=== PATIENT | female | born 1950 | race Two or more races ===

== ENCOUNTER 2025-01-07 13:53 | Inpatient (IN) | payer MEDICARE, MEDICAID ==
[~2025-01-07] VITALS: Ht 170.2 cm; Wt 82.9 kg
--- NOTE | 2025-01-07 14:43 | ED.PDOC ---
SOB-HPI HPI Comments 74 year old female presents to the ED with a chief complaint of cough onset 2 weeks. Patient states she was seen at urgent care on 01/01/25, was diagnosed with Pneumonia, prescribed Zithromax, Prednisone. Patient was called today (01/07/25), was told to come to ED due to abnormal CXR results. Patient noticed she experiences shortness of breath, dizziness with light exertion. PMHx breast cancer. Denies nausea, vomiting, diarrhea, fever, headache, chills, chest pain. No other symptoms or modifying factors present at this time. Chief Complaint: Cough Time Seen by MD: 14:35 Primary Care Provider: unknown Reviewed notes: Nurses Notes (NKDA), Medications, Allergies Information Source: Patient Mode of Arrival: Ambulatory Severity: Moderate Timing: Weeks Duration: Since onset Context: With Light Exertion PE Risk Factors: None History of: Recent URI, Recent Antibiotic Prehospital treatment: Treatment Modifying Factors: Nothing Associated Signs and Symptoms: Cough Radiation: No Radiation Past Medical History PAST MEDICAL HISTORY: Cancer (breast) Surgical History: Appendectomy, Hysterectomy, Tonsillectomy Surgical History (Other): cataract surgery, Mastectomy 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 Family History Family History: Reviewed,noncontributory to illness, No family hx of Cancer, No family hx of DM, No family hx of Heart charity, No family hx of HTN, No family hx ofKidney charity, No family hx of Liver charity, No family hx of Lung charity, No family hx of Stroke Social History Smoker: Quit Greater Than 1 Year Alcohol: Denies ETOH Use Drugs: Denies Drug Use Lives In: Home Constitutional: denies: chills, diaphoresis, fatigue, fever, malaise, sweats, weakness, others EENTM: denies: blurred vision, double vision, ear bleeding, ear discharge, ear drainage, ear pain, ear ringing, eye pain, eye redness, hearing loss, mouth pain, mouth swelling, nasal discharge, nose bleeding, nose congestion, nose pain, photophobia, tearing, throat pain, throat swelling, voice changes, others Respiratory: reports: cough, shortness of breath; denies: hemoptysis, orthopnea, SOB at rest, SOB with excertion, stridor, wheezing, others Cardiovascular: denies: chest pain, dizzy spells, diaphoresis, Dyspnea on exertion, edema, irregular heart beat, left arm pain, lightheadedness, palpitations, PND, syncope, others Gastrointestinal: denies: abdomen distended, abdominal pain, blood streaked bowels, constipated, diarrhea, dysphagia, difficulty swallowing, hematemesis, melena, nausea, poor appetite, poor fluid intake, rectal bleeding, rectal pain, vomiting, others Genitourinary: denies: abnormal vagina bleeding, burning, dyspareunia, dysuria, flank pain, frequency, hematuria, incontinence, pain, , vagina discharge, urgency, others Neurological: reports: dizziness; denies: fainting, headache, left sided numbness, left sided weakness, numbness, paresthesia, pre-existing deficit, right sided numbness, right sided weakness, seizure, speech problems, tingling, tremors, weakness, others Musculoskeletal: denies: back pain, gout, joint pain, joint swelling, muscle pain, muscle stiffness, neck pain, others Integumetry: denies: bruises, change in color, change in hair/nails, dryness, laceration, lesions, lumps, rash, wounds, others Allergic/Immunocompromised: denies: Difficulty Healing, Frequent Infections, Hives, Itching, others Hematologic/Lymphatic: denies: anemia, blood clots, easy bleeding, easy bruising, swollen glands, others Endocrine: denies: excessive hunger, excessive sweating, excessive thirst, excessive urination, flushing, intolerance to cold, intolerance to heat, unexplained weight gain, unexplained weight loss, others Psychiatric: denies: anxiety, bipolar disorder, depression, hopeless, panic disorder, schizophrenia, sleepless, suicidal, others All Other Systems: Reviewed and Negative Physical Exam General Appearance: Moderate Distress HEENT: Normal ENT Inspection, Pharynx Normal, TMs Normal Neck: Full Range of Motion, Non-Tender, Normal, Normal Inspection Respiratory: Chest Non-Tender, Decreased Breath Sounds, No Accessory Muscle Use, Rhonchi Cardiovascular: No Edema, No JVD, No Murmur, No Gallop, Normal Peripheral Pulses, Regular Rate/Rhythm Breast Exam: Deferred Gastrointestinal: No Organomegaly, Non Tender, No Pulsatile Mass, Normal Bowel Sounds, Soft Genitalia: Deferred Pelvic: Deferred Rectal: Deferred Extremities: No calf tenderness, Normal capillary refill, Normal inspection, Normal range of motion, Non-tender, No pedal edema Musculoskeletal : Apperance: Normal Neurologic: Alert, plate sensitizer II-XII nml as Tested, Motor Weakness, Normal Affect, No rmal Mood, No Sensory Deficits Cerebellar Function: Normal Reflexes: Normal Skin: Dry, Normal Color, Warm Lymphatic: No Adenopathy Was a procedure done? Was a procedure done?: No Differential Dx Differential Diagnosis: Asthma, Bronchitis, CHF, Pneumonia X-Ray, Labs, Meds, VS Vital Signs Date Time Temp Pulse Resp B/P (MAP) Pulse Ox O2 Delivery O2 Flow Rate FiO2 01/07/25 18:31 83 01/07/25 18:03 98.1 68 17 167/76 (106) 96 98.1 01/07/25 16:06 74 01/07/25 15:22 98.0 78 16 111/60 (77) 97 98.0 01/07/25 15:03 Nasal Cannula* 2 28 01/07/25 14:13 97.8 95 18 175/74 (107) 91 97.8 01/07/25 14:13 18 90 Room Air* 0 21 Lab Test 01/07/25 18:18 01/07/25 15:06 01/07/25 14:28 Range/Units White Blood Count 14.6 H 4.4-10.8 10^3/uL Red Blood Count 4.82 4.0-5.20 10^6/uL Hemoglobin 14.3 12.2-16.2 g/dL Hematocrit 42.1 36.0-46.0 % Mean Corpuscular Volume 87.3 80.0-100.0 fL Mean Corpuscular Hemoglobin 29.8 28.0-32.0 pg Mean Corpuscular Hemoglobin Concent 34.1 32.0-36.0 g/dL Red Cell Distribution Width 13.8 11.8-14.3 % Platelet Count 306 140-450 10^3/uL Mean Platelet Volume 6.3 L 6.9-10.8 fL Neutrophils (%) (Auto) 37.0-80.0 % Lymphocytes (%) (Auto) 10.0-50.0 % Monocytes (%) (Auto) 0.0-12.0 % Basophils (%) (Auto) 0.0-2.0 % Neutrophils # (Auto) 1.6-8.6 10 ^3/uL Lymphocytes # (Auto) 0.4-5.4 10 ^3/uL Monocytes # (Auto) 0-1.3 10 ^3/uL Differential Total Cells Counted 100.0 100 Neutrophils % (Manual) 68 37.0-80.0 Band Neutrophils % (Manual) 1 Lymphocytes % (Manual) 27 10.0-50.0 Monocytes % (Manual) 3 0-12 Eosinophils % (Manual) 0 0-7 Basophils % (Manual) 0 0.0-2.0 Metamyelocytes % (manual) 0 Myelocytes % (Manual) 0 Promyelocytes % (Manual) 0 Blast Cells % (Manual) 0 Reactive Lymphocytes 1 Platelet Estimate Adequate Sodium Level 137 136-145 mmol/L Potassium Level 4.4 3.5-5.1 mmol/L Chloride Level 103 98-107 mmol/L Carbon Dioxide Level 27 20-31 mmol/L Anion Gap 7 5-15 Blood Urea Nitrogen 16 9-23 mg/dL Creatinine 0.64 0.550-1.02 mg/dL Glomerular Filtration Rate Calc 92 >90 mL/min BUN/Creatinine Ratio 25.0 H 10.0-20.0 Serum Glucose 109 H 74-106 mg/dL Lactic Acid Level 0.9 0.4-2.0 mmol/L Calcium Level 9.3 8.7-10.4 mg/dL Total Bilirubin 0.3 0.2-1.0 mg/dL Aspartate Amino Transferase (AST) 25 13-40 U/L Alanine Aminotransferase (ALT) 19 7-40 U/L Alkaline Phosphatase 80 46-116 U/L B-Type Natriuretic Peptide 234.40 0-100 pg/mL Total Protein 6.0 5.7-8.2 g/dL Albumin 3.7 3.2-4.8 g/dL Influenza Type A Antigen Negative Negative Influenza Type B Antigen Negative Negative SARS-CoV-2 Antigen (Rapid) Negative NEGATIVE Current Medications Medications (Trade) Dose Ordered Sig/Paula Route Start Time Stop Time Status Last Admin Sodium Chloride 500 ml @ 500 mls/hr Q1H ONCE IV 01/07/25 14:45 01/07/25 15:44 DC 01/07/25 15:00 PROCEDURE(s): CXRP - CHEST PORTABLE IMPRESSION: 1. Findings may represent pneumonia or congestive failure Hep-Lock was established The patient was given normal saline The patient's CBC and chemistry panel are within normal limits except for an elevated white blood cell count of 14.6 The patient was being admitted at this time. The patient was also being started on IV antibiotics. The patient understands and agrees with the treatment. Images Reviewed?: Images reviewed and evaluated by me Time of 1ST Reevaluation: 15:05 Reevaluation 1ST: Unchanged Patient Education/Counseling: Diagnosis, Treatment, Prognosis Family Education/Counseling: No Family Present Departure 1 Departure Time of Disposition: 19:54 Impression: Primary Impression: Bilateral pneumonia Qualified Codes: J18.9 - Pneumonia, unspecified organism Disposition: ADMITTED INPATIENT Admit to: Tele Condition: Fair Critical Care Note Critical Care Time?: No Stability Stability form required: Yes Unstable for transfer: Telemetry monitoring (Telemetry monitoring required), ED Physician Assesment (Clinical assesment) Heart Score Heart Score: Heart Score Response (Comments) Value History N/A 0 EKG N/A 0 Age N/A 0 Risk Factors N/A 0 Troponin N/A 0 Total 0 I personally scribed for TG JEFFRIES MD ([email or web address]) on 01/07/25 at 14:43. Electronically submitted by Caro Newton ([email or web address]). I personally scribed for TG JEFFRIES MD ([email or web address]) on 01/07/25 at 16:04. Electronically submitted by Caro Newton ([email or web address]). TG JEFFRIES MD Jan 07, 2025 14:43
[2025-01-07] MEDS: SODIUM CHLORIDE 0.9% 500 ML IV ONE (15:00)
[2025-01-07 15:18] LABS: COVID19 ANTIGEN SOFIA FIA NEGATIVE (NEGATIVE); Rapid Influenza A Negative (Negative); Rapid Influenza B Negative (Negative)
[2025-01-07 15:52] LABS: Alanine Aminotransferase 19 U/L (7-40); Albumin 3.7 g/dL (3.2-4.8); Alkaline Phosphatase 80 U/L (46-116); Anion Gap 7 (5-15); Aspartate Aminotransferase 25 U/L (13-40); Bilirubin, Total 0.3 mg/dL (0.2-1.0); Blood Urea Nitrogen 16 mg/dL (9-23); Calcium 9.3 mg/dL (8.7-10.4); Carbon Dioxide 27 mmol/L (20-31); Chloride 103 mmol/L (98-107); Potassium 4.4 mmol/L (3.5-5.1); Sodium 137 mmol/L (136-145)
[2025-01-07 15:59] LABS: Glucose 109 mg/dL (74-106)
--- NOTE | 2025-01-07 16:00 | DVH ---
CHEST RADIOGRAPH Indication: sob Technique: Single frontal view of the chest was obtained Comparison: None FINDINGS: Lines and Tubes: None Lungs: Patchy airspace disease throughout the mid lower right lung field. There appears to be patchy airspace disease in the left perihilar region. Pleura: No effusion. No pneumothorax. Cardiomediastinal contours: Cardiac size upper limits of normal. Bones: No acute osseous abnormality. IMPRESSION: 1. Findings may represent pneumonia or congestive failure
[2025-01-07 18:36] LABS: Hematocrit 42.1 % (36.0-46.0); Hemoglobin 14.3 g/dL (12.2-16.2); Mean Corpuscular Hemoglobin 29.8 pg (28.0-32.0); Mean Corpuscular Hgb Conc. 34.1 g/dL (32.0-36.0); Mean Corpuscular Volume 87.3 fL (80.0-100.0); Platelet Count (auto) 306 10^3/uL (140-450); Red Blood Cells 4.82 10^6/uL (4.0-5.20); Red Cell Distribution Width 13.8 % (11.8-14.3); White Blood Cell 14.6 10^3/uL (4.4-10.8)
--- NOTE | 2025-01-07 18:36 | DVHHP2 ---
Admitting Diagnosis: cough History of Present Illness 74 year old female presents to the ED with a chief complaint of cough onset 2 weeks. Patient states she was seen at urgent care on 01/01/25, was diagnosed with Pneumonia, prescribed Zithromax, Prednisone. Patient was called today (01/07/25), was told to come to ED due to abnormal CXR results. Patient noticed she experiences shortness of breath, dizziness with light exertion. PMHx breast cancer. Denies nausea, vomiting, diarrhea, fever, headache, chills, chest pain. No other symptoms or modifying factors present at this time. 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 Family History: Reviewed,noncontributory to illness, No family hx of Cancer, No family hx of DM, No family hx of Heart charity, No family hx of HTN, No family hx ofKidney charity, No family hx of Liver charity, No family hx of Lung charity, No family hx of Stroke Social History Smoker: Quit Greater Than 1 Year Alcohol: Denies ETOH Use Drugs: Denies Drug Use Lives In: Home Allergies: Coded Allergies: NO KNOWN ALLERGIES (Unverified , 01/07/25) Vital Signs Vital Signs Date Time Temp Pulse Resp B/P (MAP) Pulse Ox O2 Delivery O2 Flow Rate FiO2 01/07/25 18:31 83 01/07/25 18:03 98.1 17 167/76 (106) 96 98.1 01/07/25 15:03 Nasal Cannula* 2 28 Physical Exam 74 years old woman, overweight, lying in bed. Mild distress on 2 L HEENT-atraumatic normocephalic Heart-regular rate and rhythm Lungs decreased breath sounds right lower lung woo Abdomen soft nontender nondistended Musculoskeletal-no edema cyanosis Neuro-AO x3, no focal deficit Results Labs Test 01/07/25 18:18 01/07/25 15:06 01/07/25 14:28 Range/Units White Blood Count 14.6 H 4.4-10.8 10^3/uL Red Blood Count 4.82 4.0-5.20 10^6/uL Hemoglobin 14.3 12.2-16.2 g/dL Hematocrit 42.1 36.0-46.0 % Mean Corpuscular Volume 87.3 80.0-100.0 fL Mean Corpuscular Hemoglobin 29.8 28.0-32.0 pg Mean Corpuscular Hemoglobin Concent 34.1 32.0-36.0 g/dL Red Cell Distribution Width 13.8 11.8-14.3 % Platelet Count 306 140-450 10^3/uL Mean Platelet Volume 6.3 L 6.9-10.8 fL Neutrophils (%) (Auto) 37.0-80.0 % Lymphocytes (%) (Auto) 10.0-50.0 % Monocytes (%) (Auto) 0.0-12.0 % Basophils (%) (Auto) 0.0-2.0 % Neutrophils # (Auto) 1.6-8.6 10 ^3/uL Lymphocytes # (Auto) 0.4-5.4 10 ^3/uL Monocytes # (Auto) 0-1.3 10 ^3/uL Differential Total Cells Counted 100.0 100 Neutrophils % (Manual) 68 37.0-80.0 Band Neutrophils % (Manual) 1 Lymphocytes % (Manual) 27 10.0-50.0 Monocytes % (Manual) 3 0-12 Eosinophils % (Manual) 0 0-7 Basophils % (Manual) 0 0.0-2.0 Metamyelocytes % (manual) 0 Myelocytes % (Manual) 0 Promyelocytes % (Manual) 0 Blast Cells % (Manual) 0 Reactive Lymphocytes 1 Platelet Estimate Adequate Sodium Level 137 136-145 mmol/L Potassium Level 4.4 3.5-5.1 mmol/L Chloride Level 103 98-107 mmol/L Carbon Dioxide Level 27 20-31 mmol/L Anion Gap 7 5-15 Blood Urea Nitrogen 16 9-23 mg/dL Creatinine 0.64 0.550-1.02 mg/dL Glomerular Filtration Rate Calc 92 >90 mL/min BUN/Creatinine Ratio 25.0 H 10.0-20.0 Serum Glucose 109 H 74-106 mg/dL Lactic Acid Level 0.9 0.4-2.0 mmol/L Calcium Level 9.3 8.7-10.4 mg/dL Total Bilirubin 0.3 0.2-1.0 mg/dL Aspartate Amino Transferase (AST) 25 13-40 U/L Alanine Aminotransferase (ALT) 19 7-40 U/L Alkaline Phosphatase 80 46-116 U/L B-Type Natriuretic Peptide 234.40 0-100 pg/mL Total Protein 6.0 5.7-8.2 g/dL Albumin 3.7 3.2-4.8 g/dL Influenza Type A Antigen Negative Negative Influenza Type B Antigen Negative Negative SARS-CoV-2 Antigen (Rapid) Negative NEGATIVE Primary Diagnosis Right lung pneumonia Failed outpatient therapy Plan Start Zosyn for broad-spectrum antibiotics Check blood culture, sputum culture according to the ID and sensitivity Lactic acid normalized IV fluids Pain control Bowel regimen Antiemetic Full code Regular diet No GI prophylaxis needed Lovenox for DVT prophylaxis Plan discussed with: Patient Date of Service: Jan 07, 2025 Billing Provider: VANESSA MAYBERRY MD Common Visit Codes: [id number] INP/OBS CARE (MOD) VANESSA MAYBERRY MD Jan 07, 2025 18:36
[2025-01-07 18:39] LABS: Basophils % (manual) 0 (0.0-2.0); Blast Cells 0; Eosinophils % (manual) 0 (0-7); Metamyelocytes % 0; Myelocytes % 0; Promyelocytes % 0
[2025-01-07 18:50] LABS: Band Neutrophils % (manual) 1; Lymphocytes % (manual) 27 (10.0-50.0); Monocytes % (manual) 3 (0-12); Reactive Lymphocytes 1
[2025-01-07 18:51] LABS: Platelet Estimate Adequate
[2025-01-07] MEDS ORDERED: HYDROmorphone HCL 2 MG/ML VL/or syr IV PRN (19:00)
[2025-01-07] MEDS ORDERED: ACETAMINOPHEN 325 MG TAB PO PRN (19:00)
[2025-01-07] MEDS ORDERED: DOCUSATE SOD 100 MG CAP PO PRN (19:00)
[2025-01-07] MEDS ORDERED: HYDROcodone-ACET 5/325MG TAB PO PRN (19:00)
[2025-01-07 19:30] VITALS: O2SAT 95
[2025-01-07 19:52] VITALS: BP 167/76; PULSE 83; RESP 17; TEMP 98.1; O2SAT 96
[2025-01-07] MEDS: PIPERACILLIN-TAZOB 3.375GM 100 ML IV SCH (20:08)
[2025-01-07 21:18] LABS: Urine Bacteria None Seen /hpf (None Seen)
[2025-01-07 21:40] LABS: Urine Blood Negative /uL (Negative); Urine Clarity Clear (Clear); Urine Color Light-Yellow (Yellow); Urine Protein, UAD Negative (Negative); Urine Specific Gravity 1.011 (1.001-1.035); Urine Squamous Epithelial Cell None Seen /hpf (<5); Urine Urobilinogen Normal (Negative); Urine WBC 3 /HPF (0-5); Urine pH 6.5 (5.0-9.0)
[2025-01-07] MEDS: SODIUM CHLOR 0.9% PF (SALINE LOCK) 10ML VIAL/SYR IV SCH (21:41)
[2025-01-08] MEDS: PIPERACILLIN-TAZOB 3.375GM 100 ML IV SCH (02:16)
[2025-01-08 03:51] LABS: Hematocrit 40.9 % (36.0-46.0); Hemoglobin 13.6 g/dL (12.2-16.2); Mean Corpuscular Hemoglobin 28.7 pg (28.0-32.0); Mean Corpuscular Hgb Conc. 33.2 g/dL (32.0-36.0); Mean Corpuscular Volume 86.5 fL (80.0-100.0); Platelet Count (auto) 278 10^3/uL (140-450); Red Blood Cells 4.73 10^6/uL (4.0-5.20); Red Cell Distribution Width 13.8 % (11.8-14.3); White Blood Cell 13.5 10^3/uL (4.4-10.8)
[2025-01-08 04:07] LABS: Band Neutrophils % (manual) 0; Basophils % (manual) 0 (0.0-2.0); Blast Cells 0; Eosinophils % (manual) 0 (0-7); Metamyelocytes % 0; Myelocytes % 0; Promyelocytes % 0
[2025-01-08 04:08] LABS: Alanine Aminotransferase 15 U/L (7-40); Alkaline Phosphatase 76 U/L (46-116); Anion Gap 5 (5-15); Aspartate Aminotransferase 17 U/L (13-40); BUN/Creatinine Ratio 16.4 (10.0-20.0); Blood Urea Nitrogen 11 mg/dL (9-23); Carbon Dioxide 29 mmol/L (20-31); Chloride 101 mmol/L (98-107)
[2025-01-08 04:09] LABS: Albumin 3.4 g/dL (3.2-4.8); Bilirubin, Total 0.6 mg/dL (0.2-1.0)
[2025-01-08 04:14] LABS: Calcium 8.6 mg/dL (8.7-10.4); Glucose 122 mg/dL (74-106); Sodium 135 mmol/L (136-145); Total Protein 5.7 g/dL (5.7-8.2)
[2025-01-08 05:21] LABS: Lymphocytes % (manual) 14 (10.0-50.0); Monocytes % (manual) 4 (0-12); Platelet Estimate Adequate; Reactive Lymphocytes 4
[2025-01-08 07:52] VITALS: PULSE 72; RESP 16; O2SAT 95
[2025-01-08] MEDS: ENOXAPARIN SOD 40 MG/0.4 ML SYRINGE SC SCH (10:03)
[2025-01-08] MEDS: IOHEXOL 300 MG/ML 100ML BOTTLE IJ ONE (12:08)
--- NOTE | 2025-01-08 12:39 | DVHPN2 ---
Progress Note Date Seen: Jan 08, 2025 Medical Necessity Reason Pt with a Central, PICC or Fol: No Subjective Patient reports: No new complaints Review of Systems: HEENT:Normal, CVS:Normal, RESPIRATORY:Normal, GI:Normal, :Normal, MSK:Normal, NEURO:Normal Objective vital signs Vital Sign Date Time Temp Pulse Resp B/P (MAP) Pulse Ox O2 Delivery O2 Flow Rate FiO2 01/08/25 12:00 98.1 88 18 148/48 (81) 93 98.1 01/08/25 07:52 Nasal Cannula* 2 28 Total Intake and Output 01/07/25 01/07/25 01/08/25 15:00 23:00 07:00 Intake Total 500 ml Balance 500 ml medications Current Medications Medications Dose Ordered Sig/Paula Route Start Time Stop Time Status Last Admin Dose Admin Albuterol 2.5 mg Q6H PRN NEB 01/07/25 19:00 Ipratropium [place] 0.5 mg Q6H PRN NEB 01/07/25 19:00 Sodium Chloride 10 ml Q8HR IV 01/07/25 22:00 01/08/25 05:19 10 ML Docusate Sodium 100 mg BIDPRN PRN PO 01/07/25 19:00 Acetaminophen 650 mg Q6HP PRN PO 01/07/25 19:00 Acetaminophen/ Hydrocodone Bitart 1 tab Q4HP PRN PO 01/07/25 19:00 Hydromorphone HCl 0.5 mg Q4HP PRN IV 01/07/25 19:00 Ondansetron HCl 4 mg Q4HP PRN IV 01/07/25 19:00 Enoxaparin Sodium 40 mg DAILY SC 01/08/25 10:00 01/08/25 10:03 40 MG Piperacillin Sod/ Tazobactam Sod 100 ml @ 100 mls/hr Q6H IV 01/08/25 02:00 01/08/25 08:18 100 MLS/HR Examination: GENERAL:Normal, HEENT:Normal, NECK:Normal, LUNGS:Normal, LUNGS:Abnormal (on oxygen), CVS:Normal, ABDOMEN:Normal, MSK:Normal, SKIN:Normal, NEURO:Normal, :Normal laboratory and microbiology Laboratory Tests 01/08/25 03:37 Test 01/08/25 03:37 Range/Units Serum Glucose 122 H 74-106 mg/dL Problem List/Assessment/Plan Problem List/Assessment/Plan #1 acute resp failure: cont oxygen #2 right pneumonia-gram positive/neg with sepsis: iv antibiotics #3 ? acute systolic/diastolic heart failure: echo #4 h/o breast cancer #5 htn: lisinopril advance care planning- full code- time spent 19 mins Plan discussed with: Patient My Orders My Orders Orders - WINSTON PINEDA MD Procedure Category Date Status Time Chest With Contrast CT 01/08/25 Verified 12:33 Echo 2d Mode Cardiac US 01/08/25 Verified DOP 12:33 Morphine Sulfate PHA 01/08/25 Verified Injection 12:45 Basic Metabolic Panel LAB 01/09/25 Verified 06:00 Complete Blood Count LAB 01/09/25 Verified 06:00 Date of Service: Jan 08, 2025 Billing Provider: WINSTON PINEDA MD Common Visit Codes: [id number] INP/OBS CARE(HIGH) Secondary Visit Codes: [id number] CARE PLAN 30 MINUTES WINSTON PINEDA MD Jan 08, 2025 12:39
[2025-01-08] MEDS ORDERED: MORPHINE SULFATE INJ 2 MG/ml SYRG IV PRN (12:45)
[2025-01-08] MEDS ORDERED: hydrALAZINE HCL 20 MG/ML VL IV PRN (12:45)
[2025-01-08] MEDS: LISINOPRIL 5 MG TAB PO ONE (12:57)
--- NOTE | 2025-01-08 14:13 | DVH ---
CT Chest without intravenous contrast INDICATION: right pneumonia TECHNIQUE: Multidetector spiral CT of the chest was performed from the lung apices to the upper abdom en. Axial, coronal and sagittal multiplanar reformats were performed. Radiation Dose : 1. Chest: CTDI volume is 17.78 mGy. Dose-length product is 599.78 mGy*cm The dose indicators for CT are the volume Computed Tomography (CT) Dose Index (CTDIvol) and the Dose Length Product (DLP), and are measured in units of mGy and mGy-cm, respectively. These indicators are not patient dose, but values generated from the CT scanner acquisition factors. The report includes radiation exposure data for exposures received during this examination. Comparison: Chest radiograph dated 01/07/2025 Findings: Lower neck: Normal thyroid. Lungs: Bronchiectasis and scarring in the right upper lobe. Patchy airspace opacities are present in the right upper lobe and right lower lobe. Heart/Vascular Structures: Cardiomegaly. Coronary artery calcifications. Vascular calcifications of t he aorta. Lymph Nodes: No adenopathy Pleura: Trace right pleural effusion or pleural thickening. Musculoskeletal: No acute osseous abnormality. Soft tissues: Normal. Upper abdomen: Cholelithiasis. Hepatic steatosis. IMPRESSION: Patchy airspace opacities are present in the right upper lobe and right lower lobe. Findings may rep resent a combination of scarring and superimposed multifocal pneumonia. Clinical correlation advised . Radiation optimization: All CT scans at this facility use at least one of these dose optimization michael hniques: automated exposure control mA and/or kV adjustment per patient size (includes targeted exam s where dose is matched to clinical indication) or iterative reconstruction.
[2025-01-08 15:50] VITALS: O2SAT 94
[2025-01-08 18:05] VITALS: O2SAT 94
[2025-01-08 18:32] VITALS: BP 134/59; PULSE 72; RESP 18; TEMP 98.1; O2SAT 95
[2025-01-08] MEDS ORDERED: METH4TAB44 PO (20:24)
[2025-01-08] MEDS ORDERED: ALBU0.084 NEB (20:24)
[2025-01-08] MEDS ORDERED: LORA-622 PO (20:24)
[2025-01-08] MEDS ORDERED: PRED20TA2 PO (20:24)
[2025-01-08] MEDS ORDERED: AZIT-74 PO (20:24)
[2025-01-08 21:00] VITALS: BP 137/53; PULSE 89; RESP 16; TEMP 98.6; O2SAT 95
[2025-01-09] VITALS (12 sets, daily range): BP systolic 115–149; BP diastolic 43–64; PULSE 63–116; RESP 16–18; TEMP 98–98.6; O2SAT 93–100
[2025-01-09 05:43] LABS: Basophils # (auto) 0 10 ^3/uL (0-0.2); Basophils % (auto) 0.3 % (0.0-2.0); Eosinophils # (auto) 0.3 10 ^3/uL (0-0.8); Eosinophils % (auto) 2.2 % (0.0-7.0); Hematocrit 40.7 % (36.0-46.0); Hemoglobin 13.6 g/dL (12.2-16.2); Lymphocytes % (auto) 15.5 % (10.0-50.0); Mean Corpuscular Hemoglobin 28.9 pg (28.0-32.0); Mean Corpuscular Hgb Conc. 33.4 g/dL (32.0-36.0); Mean Corpuscular Volume 86.7 fL (80.0-100.0); Monocytes # (auto) 0.7 10 ^3/uL (0-1.3); Neutrophils # (auto) 10.1 10 ^3/uL (1.6-8.6); Platelet Count (auto) 282 10^3/uL (140-450); Red Cell Distribution Width 13.7 % (11.8-14.3); White Blood Cell 13.1 10^3/uL (4.4-10.8)
[2025-01-09] MEDS: ONDANSETRON HCL 4 MG/2 ML VIAL IV PRN (05:50)
[2025-01-09 06:02] LABS: Alanine Aminotransferase 15 U/L (7-40); Albumin 3.5 g/dL (3.2-4.8); Alkaline Phosphatase 77 U/L (46-116); Anion Gap 5 (5-15); Aspartate Aminotransferase 14 U/L (13-40); BUN/Creatinine Ratio 10.4 (10.0-20.0); Blood Urea Nitrogen 7 mg/dL (9-23); Calcium 9.2 mg/dL (8.7-10.4); Carbon Dioxide 29 mmol/L (20-31); Chloride 101 mmol/L (98-107); Glucose 123 mg/dL (74-106); Potassium 3.9 mmol/L (3.5-5.1); Sodium 135 mmol/L (136-145); Total Protein 5.8 g/dL (5.7-8.2)
[2025-01-09 06:03] LABS: Bilirubin, Total 0.6 mg/dL (0.2-1.0)
[2025-01-09] MEDS: LISINOPRIL 5 MG TAB PO SCH (08:57)
--- NOTE | 2025-01-09 12:27 | DVHPN2 ---
Progress Note Date Seen: Jan 09, 2025 Medical Necessity Reason Pt with a Central, PICC or Fol: No Subjective Patient reports: No new complaints Review of Systems: HEENT:Normal, CVS:Normal, RESPIRATORY:Normal, GI:Normal, :Normal, MSK:Normal, NEURO:Normal Objective vital signs Vital Sign Date Time Temp Pulse Resp B/P (MAP) Pulse Ox O2 Delivery O2 Flow Rate FiO2 01/09/25 08:57 139/52 01/09/25 08:54 98 Nasal Cannula 2.0 01/09/25 08:54 28 01/09/25 08:42 98.4 80 17 98.4 Total Intake and Output 01/08/25 01/08/25 01/09/25 15:00 23:00 07:00 Intake Total 100 ml 100 ml 300 ml Balance 100 ml 100 ml 300 ml medications Current Medications Medications Dose Ordered Sig/Paula Route Start Time Stop Time Status Last Admin Dose Admin Albuterol 2.5 mg Q6H PRN NEB 01/07/25 19:00 Ipratropium [place] 0.5 mg Q6H PRN NEB 01/07/25 19:00 Sodium Chloride 10 ml Q8HR IV 01/07/25 22:00 01/09/25 05:48 10 ML Docusate Sodium 100 mg BIDPRN PRN PO 01/07/25 19:00 Acetaminophen 650 mg Q6HP PRN PO 01/07/25 19:00 Acetaminophen/ Hydrocodone Bitart 1 tab Q4HP PRN PO 01/07/25 19:00 Ondansetron HCl 4 mg Q4HP PRN IV 01/07/25 19:00 01/09/25 05:50 4 MG Enoxaparin Sodium 40 mg DAILY SC 01/08/25 10:00 01/09/25 08:53 40 MG Piperacillin Sod/ Tazobactam Sod 100 ml @ 100 mls/hr Q6H IV 01/08/25 02:00 01/09/25 08:53 100 MLS/HR Morphine Sulfate 2 mg Q4HPRN PRN IV 01/08/25 12:45 Lisinopril 10 mg DAILY PO 01/09/25 10:00 01/09/25 08:57 10 MG Hydralazine HCl 10 mg Q6HP PRN IV 01/08/25 12:45 Examination: GENERAL:Normal, HEENT:Normal, NECK:Normal, LUNGS:Normal, LUNGS:Abnormal (on oxygen), CVS:Normal, ABDOMEN:Normal, MSK:Normal, SKIN:Normal, NEURO:Normal, :Normal laboratory and microbiology Laboratory Tests 01/09/25 04:58 Test 01/09/25 04:58 Range/Units Serum Glucose 123 H 74-106 mg/dL Microbiology Date/Time Source Procedure Growth Status 01/07/25 19:25 Blood Blood Culture - Preliminary NO GROWTH AFTER 24 HOURS OF INCUBATION. Resulted Problem List/Assessment/Plan Problem List/Assessment/Plan #1 acute resp failure: cont oxygen #2 right pneumonia-gram positive/neg/mrsa? with sepsis: iv antibiotics, iv vanc #3 ? acute systolic/diastolic heart failure: echo #4 h/o breast cancer #5 htn: lisinopril advance care planning- full code- time spent 19 mins Plan discussed with: Patient My Orders My Orders Orders - WINSTON PINEDA MD Procedure Category Date Status Time Chest With Contrast CT 01/08/25 Resulted 12:33 Morphine Sulfate PHA 01/08/25 In Process Injection 12:45 Hydralazine Injection PHA 01/08/25 In Process (Apresoline Inject 12:45 Lisinopril Tablet PHA 01/09/25 In Process (Zestril Tablet) 10:00 2 Gm Sodium Diet DIET 01/08/25 Transmitted Lunch Vancomycin Per PHA 01/09/25 Verified Pharmacy 12:30 Complete Blood Count LAB 01/10/25 Verified 06:00 Date of Service: Jan 09, 2025 Billing Provider: WINSTON PINEDA MD Common Visit Codes: [id number] INP/OBS CARE(HIGH) WINSTON PINEDA MD Jan 09, 2025 12:27
[2025-01-09] MEDS ORDERED: VANCOMYCIN PER PHARMACY 0 MG IV SCH (12:30)
[2025-01-09] MEDS: ALBUTEROL SULF 2.5 MG/0.5ML(0.5%) NEB SOLN NEB PRN (14:50)
[2025-01-09] MEDS: IPRATROPIUM BROM 0.5 MG/2.5ML INH SOL NEB PRN (14:50)
[2025-01-09] MEDS: VANCOMYCIN 1.5GM/300ML 300 ML IV ONE (15:50)
[2025-01-10] VITALS (14 sets, daily range): BP systolic 115–136; BP diastolic 51–66; PULSE 69–113; RESP 16–18; TEMP 97.6–98.9; O2SAT 89–100
[2025-01-10] MEDS: VANCOMYCIN 1GM/250ML KIT 250 ML IV SCH (04:22)
[2025-01-10] MEDS: PIPERACILLIN-TAZOB 3.375GM 100 ML IV SCH (06:01)
[2025-01-10 08:02] LABS: Basophils # (auto) 0.1 10 ^3/uL (0-0.2); Basophils % (auto) 0.5 % (0.0-2.0); Eosinophils # (auto) 0.4 10 ^3/uL (0-0.8); Eosinophils % (auto) 2.5 % (0.0-7.0); Hematocrit 39.7 % (36.0-46.0); Hemoglobin 13.3 g/dL (12.2-16.2); Lymphocytes # (auto) 1.8 10 ^3/uL (0.4-5.4); Lymphocytes % (auto) 12.4 % (10.0-50.0); Mean Corpuscular Hemoglobin 29.4 pg (28.0-32.0); Mean Corpuscular Hgb Conc. 33.5 g/dL (32.0-36.0); Mean Corpuscular Volume 87.7 fL (80.0-100.0); Monocytes # (auto) 0.6 10 ^3/uL (0-1.3); Neutrophils # (auto) 11.9 10 ^3/uL (1.6-8.6); Neutrophils % (auto) 80.6 % (37.0-80.0); Nucleated Red Blood Cells % 0.1 %; Platelet Count (auto) 276 10^3/uL (140-450); Red Blood Cells 4.53 10^6/uL (4.0-5.20); Red Cell Distribution Width 13.8 % (11.8-14.3); White Blood Cell 14.8 10^3/uL (4.4-10.8)
[2025-01-10 08:24] LABS: Alanine Aminotransferase 16 U/L (7-40); Albumin 3.4 g/dL (3.2-4.8); Alkaline Phosphatase 68 U/L (46-116); Anion Gap 7 (5-15); Aspartate Aminotransferase 14 U/L (13-40); BUN/Creatinine Ratio 10.6 (10.0-20.0); Bilirubin, Total 0.6 mg/dL (0.2-1.0); Carbon Dioxide 27 mmol/L (20-31); Chloride 103 mmol/L (98-107); Sodium 137 mmol/L (136-145); Total Protein 5.8 g/dL (5.7-8.2)
[2025-01-10 08:32] LABS: Blood Urea Nitrogen 7 mg/dL (9-23); Glucose 115 mg/dL (74-106)
--- NOTE | 2025-01-10 15:43 | DVHPN2 ---
Progress Note Date Seen: Jan 10, 2025 Medical Necessity Reason Pt with a Central, PICC or Fol: No Subjective Patient reports: No new complaints Review of Systems: HEENT:Normal, CVS:Normal, RESPIRATORY:Normal, GI:Normal, :Normal, MSK:Normal, NEURO:Normal Objective vital signs Vital Sign Date Time Temp Pulse Resp B/P (MAP) Pulse Ox O2 Delivery O2 Flow Rate FiO2 01/10/25 13:00 97.6 77 18 115/64 (81) 93 97.6 01/10/25 10:22 2.0 01/10/25 08:20 Nasal Cannula* 28 Total Intake and Output 01/09/25 01/09/25 01/10/25 15:00 23:00 07:00 Intake Total 100 ml 760 ml 400 ml Balance 100 ml 760 ml 400 ml medications Current Medications Medications Dose Ordered Sig/Paula Route Start Time Stop Time Status Last Admin Dose Admin Albuterol 2.5 mg Q6H PRN NEB 01/07/25 19:00 01/10/25 07:27 2.5 MG Ipratropium [place] 0.5 mg Q6H PRN NEB 01/07/25 19:00 01/10/25 07:27 0.5 MG Sodium Chloride 10 ml Q8HR IV 01/07/25 22:00 01/10/25 14:09 10 ML Docusate Sodium 100 mg BIDPRN PRN PO 01/07/25 19:00 Acetaminophen 650 mg Q6HP PRN PO 01/07/25 19:00 Acetaminophen/ Hydrocodone Bitart 1 tab Q4HP PRN PO 01/07/25 19:00 Ondansetron HCl 4 mg Q4HP PRN IV 01/07/25 19:00 01/09/25 05:50 4 MG Enoxaparin Sodium 40 mg DAILY SC 01/08/25 10:00 01/10/25 10:26 40 MG Morphine Sulfate 2 mg Q4HPRN PRN IV 01/08/25 12:45 Lisinopril 10 mg DAILY PO 01/09/25 10:00 01/10/25 10:26 10 MG Hydralazine HCl 10 mg Q6HP PRN IV 01/08/25 12:45 Vancomycin HCl 0 ml @ 0 mls/hr UD IV 01/09/25 12:30 Vancomycin HCl 250 ml @ 250 mls/hr Q12H IV 01/10/25 04:00 01/10/25 04:22 250 MLS/HR Piperacillin Sod/ Tazobactam Sod 100 ml @ 100 mls/hr Q6H IV 01/10/25 06:00 01/10/25 12:26 100 MLS/HR Examination: GENERAL:Normal, HEENT:Normal, NECK:Normal, LUNGS:Normal, LUNGS:Abnormal (on oxygen), CVS:Normal, ABDOMEN:Normal, MSK:Normal, SKIN:Normal, NEURO:Normal, :Normal laboratory and microbiology Laboratory Tests 01/10/25 07:16 Test 01/10/25 07:16 Range/Units Serum Glucose 115 H 74-106 mg/dL Microbiology Date/Time Source Procedure Growth Status 01/07/25 19:25 Blood Blood Culture - Preliminary NO GROWTH AFTER 48 HOURS OF INCUBATION. Resulted Problem List/Assessment/Plan Problem List/Assessment/Plan #1 acute resp failure: cont oxygen #2 right pneumonia-gram positive/neg/mrsa? with sepsis: iv antibiotics, iv vanc #3 ? acute systolic/diastolic heart failure: echo #4 h/o breast cancer #5 htn: lisinopril advance care planning- full code- time spent 19 mins Plan discussed with: Patient My Orders My Orders Orders - WINSTON PINEDA MD Procedure Category Date Status Time Vancomycin Per DEEPAK 01/11/25 In Process Pharmacy Protoc 04:00 Vancomycin,Trough LAB 01/11/25 Verified 03:00 Vancomycin 1gm/250ml PHA 01/10/25 In Process Kit 04:00 Dietary Evaluation Review Comments: encourage and monitor 75% PO intake. Expected Outcomes/Goals: gradual wt loss, within 10% of IBW Date of Service: Jan 10, 2025 Billing Provider: WINSTON PINEDA MD Common Visit Codes: [id number] INP/OBS CARE(HIGH) WINSTON PINEDA MD Jan 10, 2025 15:43
[2025-01-11] VITALS (11 sets, daily range): BP systolic 116–146; BP diastolic 57–70; PULSE 80–100; RESP 17–18; TEMP 97.3–98.3; O2SAT 92–97
[2025-01-11 03:55] LABS: Basophils # (auto) 0 10 ^3/uL (0-0.2); Basophils % (auto) 0.3 % (0.0-2.0); Eosinophils # (auto) 0.3 10 ^3/uL (0-0.8); Eosinophils % (auto) 2.9 % (0.0-7.0); Hematocrit 36.8 % (36.0-46.0); Hemoglobin 12.5 g/dL (12.2-16.2); Lymphocytes # (auto) 2.1 10 ^3/uL (0.4-5.4); Mean Corpuscular Hemoglobin 29.7 pg (28.0-32.0); Mean Corpuscular Hgb Conc. 33.9 g/dL (32.0-36.0); Mean Corpuscular Volume 87.6 fL (80.0-100.0); Monocytes # (auto) 0.6 10 ^3/uL (0-1.3); Monocytes % (auto) 5.5 % (0.0-12.0); Neutrophils # (auto) 7.6 10 ^3/uL (1.6-8.6); Neutrophils % (auto) 71.3 % (37.0-80.0); Nucleated Red Blood Cells % 0.1 %; Platelet Count (auto) 266 10^3/uL (140-450); White Blood Cell 10.6 10^3/uL (4.4-10.8)
[2025-01-11 04:12] LABS: Alanine Aminotransferase 14 U/L (7-40); Alkaline Phosphatase 57 U/L (46-116); Anion Gap 8 (5-15); BUN/Creatinine Ratio 16.4 (10.0-20.0); Blood Urea Nitrogen 11 mg/dL (9-23); Calcium 9.3 mg/dL (8.7-10.4); Carbon Dioxide 26 mmol/L (20-31); Chloride 103 mmol/L (98-107); Potassium 3.7 mmol/L (3.5-5.1); Sodium 137 mmol/L (136-145); Total Protein 5.7 g/dL (5.7-8.2)
[2025-01-11 04:13] LABS: Albumin 3.4 g/dL (3.2-4.8); Aspartate Aminotransferase 14 U/L (13-40); Bilirubin, Total 0.5 mg/dL (0.2-1.0); Glucose 113 mg/dL (74-106)
--- NOTE | 2025-01-11 07:04 | DVH ---
EXAM: XR Chest, 1 View CLINICAL INDICATION: right pneumonia TECHNIQUE: Frontal view of the chest. COMPARISON: XY CHEST PORTABLE on DOS: 01/07/25 FINDINGS: LUNGS AND PLEURAL SPACES: See below. HEART: Cardiomegaly with pulmonary congestion and edema. Superimposed pneumonia cannot be excluded. MEDIASTINUM: Unremarkable. Normal mediastinal contour. BONES/JOINTS: Unremarkable. No acute fracture. OTHER FINDINGS: . IMPRESSION: Cardiomegaly with pulmonary congestion and edema. Superimposed pneumonia cannot be excluded.
[2025-01-11] MEDS: FLORASTOR (S. BOULARDII) 250 MG CAP PO SCH (10:21)
--- NOTE | 2025-01-11 14:15 | DVHSR ---
APPROVED REPORT EXAM: LIMITED Two-dimensional and M-mode echocardiogram with Doppler and color Doppler. Blood Pressure: 148/48 mmHg INDICATION CHF RISK FACTORS Height: 67, Weight: 184 DIMENSIONS LVDd4.7 (3.8-5.7cm)LA (2D) (1.9-4.0cm)Aortic Root (2.0-3.7cm) LVDs3.5 (2.5-4.0cm)LA (MM) (1.9-4.0cm)Aortic Cusp Exc (1.5-2.0cm) EF (%) 50.0 (55-70%)Rt. Atrium (1.9-4.0cm)Asc. Aorta cm Mitral Valve MitralMitral Stenosis E wave1.02m/sMV Mean GR.mmHg A wave1.06m/sMV Peak GR.mmHg E/A ratio1.02D MVAcm2 DECEL [id number] 1/2 Timems Aortic Valve Aortic ValveAortic Stenosis V10.74m/Gagan Mean GR.3mmHg V21.17m/Gagan Peak GR.6mmHg Other Information Technically limited study due to body habitus, patient position, patient sensitive to touch. Limited views. Conclusion Technically difficult study. Difficult acoustic windows. Chamber dimensions appear to be within normal limits. Difficult to fully evaluate endocardial struct ures. Valves appear to be normal from the limited views obtained. EF of 60% with normal RV function. Dopplers unremarkable. No pericardial effusion masses or vegetations discernible.
--- NOTE | 2025-01-11 16:44 | DVHPN2 ---
Progress Note Date Seen: Jan 11, 2025 Medical Necessity Reason Pt with a Central, PICC or Fol: No Subjective Patient reports: No new complaints Review of Systems: HEENT:Normal, CVS:Normal, RESPIRATORY:Normal, GI:Normal, :Normal, MSK:Normal, NEURO:Normal Objective vital signs Vital Sign Date Time Temp Pulse Resp B/P (MAP) Pulse Ox O2 Delivery O2 Flow Rate FiO2 01/11/25 12:30 98.3 92 17 136/60 (85) 94 98.3 01/11/25 08:08 Nasal Cannula* 2 28 Total Intake and Output 01/10/25 01/10/25 01/11/25 15:00 23:00 07:00 Intake Total 200 ml 1559 ml 560 ml Balance 200 ml 1559 ml 560 ml medications Current Medications Medications Dose Ordered Sig/Paula Route Start Time Stop Time Status Last Admin Dose Admin Albuterol 2.5 mg Q6H PRN NEB 01/07/25 19:00 01/10/25 23:42 2.5 MG Ipratropium [place] 0.5 mg Q6H PRN NEB 01/07/25 19:00 01/10/25 23:42 0.5 MG Sodium Chloride 10 ml Q8HR IV 01/07/25 22:00 01/11/25 14:40 10 ML Docusate Sodium 100 mg BIDPRN PRN PO 01/07/25 19:00 Acetaminophen 650 mg Q6HP PRN PO 01/07/25 19:00 Acetaminophen/ Hydrocodone Bitart 1 tab Q4HP PRN PO 01/07/25 19:00 Ondansetron HCl 4 mg Q4HP PRN IV 01/07/25 19:00 01/09/25 05:50 4 MG Enoxaparin Sodium 40 mg DAILY SC 01/08/25 10:00 01/11/25 10:22 40 MG Morphine Sulfate 2 mg Q4HPRN PRN IV 01/08/25 12:45 Lisinopril 10 mg DAILY PO 01/09/25 10:00 01/11/25 10:22 10 MG Hydralazine HCl 10 mg Q6HP PRN IV 01/08/25 12:45 Vancomycin HCl 0 ml @ 0 mls/hr UD IV 01/09/25 12:30 Vancomycin HCl 250 ml @ 250 mls/hr Q12H IV 01/10/25 04:00 01/11/25 16:13 250 MLS/HR Piperacillin Sod/ Tazobactam Sod 100 ml @ 100 mls/hr Q6H IV 01/10/25 06:00 01/11/25 14:39 100 MLS/HR Saccharomyces Boulardii 250 mg DAILY PO 01/11/25 10:00 01/11/25 10:21 250 MG Examination: GENERAL:Normal, HEENT:Normal, NECK:Normal, LUNGS:Normal, LUNGS:Abnormal (on oxygen), CVS:Normal, ABDOMEN:Normal, MSK:Normal, SKIN:Normal, NEURO:Normal, :Normal laboratory and microbiology Laboratory Tests 01/11/25 03:00 Test 01/11/25 03:00 Range/Units Serum Glucose 113 H 74-106 mg/dL Microbiology Date/Time Source Procedure Growth Status 01/07/25 19:25 Blood Blood Culture - Preliminary NO GROWTH AFTER 72 HOURS OF INCUBATION. Resulted Problem List/Assessment/Plan Problem List/Assessment/Plan #1 acute resp failure: cont oxygen #2 right pneumonia-gram positive/neg/mrsa? with sepsis:doxy #3 ? acute systolic/diastolic heart failure: lasix iv #4 h/o breast cancer #5 htn: lisinopril advance care planning- full code- time spent 19 mins Plan discussed with: Patient My Orders My Orders Orders - WINSTON PINEDA MD Procedure Category Date Status Time Vancomycin Per DEEPAK 01/12/25 In Process Pharmacy Protoc 15:00 Vancomycin,Trough LAB 01/12/25 Verified 15:00 Furosemide Injection PHA 01/11/25 Verified (Lasix Injection) 16:45 Furosemide Injection PHA 01/12/25 Verified (Lasix Injection) 10:00 Doxycycline Tablet PHA 01/11/25 Verified (Vibramycin Tablet) 22:00 Basic Metabolic Panel LAB 01/12/25 Verified 06:00 Complete Blood Count LAB 01/12/25 Verified 06:00 Chest Portable XY 01/12/25 Verified 06:00 Dietary Evaluation Review Comments: encourage and monitor 75% PO intake. Expected Outcomes/Goals: gradual wt loss, within 10% of IBW Date of Service: Jan 11, 2025 Billing Provider: WINSTON PINEDA MD Common Visit Codes: [id number] INP/OBS CARE(HIGH) WINSTON PINEDA MD Jan 11, 2025 16:44
[2025-01-11] MEDS: FUROSEMIDE 20 MG/2 ML VIAL IV ONE (18:21)
[2025-01-11] MEDS: DOXYCYCLINE 100 MG TAB/CAP PO SCH (21:28)
[2025-01-12] VITALS (12 sets, daily range): BP systolic 126–170; BP diastolic 55–81; PULSE 77–104; RESP 16–20; TEMP 97.4–98.3; O2SAT 93–99
[2025-01-12 05:14] LABS: Basophils # (auto) 0 10 ^3/uL (0-0.2); Basophils % (auto) 0.5 % (0.0-2.0); Eosinophils # (auto) 0.3 10 ^3/uL (0-0.8); Eosinophils % (auto) 4.1 % (0.0-7.0); Hematocrit 39.2 % (36.0-46.0); Hemoglobin 13.5 g/dL (12.2-16.2); Lymphocytes # (auto) 1.9 10 ^3/uL (0.4-5.4); Lymphocytes % (auto) 23.4 % (10.0-50.0); Mean Corpuscular Hgb Conc. 34.4 g/dL (32.0-36.0); Mean Corpuscular Volume 87.1 fL (80.0-100.0); Monocytes # (auto) 0.6 10 ^3/uL (0-1.3); Monocytes % (auto) 7.5 % (0.0-12.0); Neutrophils # (auto) 5.3 10 ^3/uL (1.6-8.6); Neutrophils % (auto) 64.5 % (37.0-80.0); Platelet Count (auto) 275 10^3/uL (140-450); Red Cell Distribution Width 13.6 % (11.8-14.3); White Blood Cell 8.3 10^3/uL (4.4-10.8)
[2025-01-12 05:36] LABS: Alanine Aminotransferase 13 U/L (7-40); Albumin 3.8 g/dL (3.2-4.8); Alkaline Phosphatase 62 U/L (46-116); Anion Gap 7 (5-15); Aspartate Aminotransferase 17 U/L (13-40); BUN/Creatinine Ratio 10.3 (10.0-20.0); Calcium 9.5 mg/dL (8.7-10.4); Carbon Dioxide 28 mmol/L (20-31); Chloride 101 mmol/L (98-107); Potassium 3.8 mmol/L (3.5-5.1); Total Protein 6.3 g/dL (5.7-8.2)
[2025-01-12 05:37] LABS: Bilirubin, Total 0.4 mg/dL (0.2-1.0)
[2025-01-12 05:39] LABS: Blood Urea Nitrogen 7 mg/dL (9-23); Glucose 120 mg/dL (74-106); Sodium 136 mmol/L (136-145)
[2025-01-12] MEDS: FUROSEMIDE 20 MG/2 ML VIAL IV SCH (09:16)
--- NOTE | 2025-01-12 09:58 | DVH ---
CHEST RADIOGRAPH Indication: chf Technique: Single frontal view of the chest was obtained COMPARISON: XY CHEST PORTABLE on DOS: 01/11/25, XY CHEST PORTABLE on DOS: 01/07/25 FINDINGS: Lines and Tubes: None Lungs: Unchanged airspace opacities in the right lung. Improved aeration of the left lung. Pleura: No effusion. No pneumothorax. Cardiomediastinal contours: Unremarkable Bones: Unremarkable IMPRESSION: Unchanged airspace opacities in the right lung. Improved aeration of the left lung.
--- NOTE | 2025-01-12 16:15 | DVHPN2 ---
Subjective Patient was starts that her breathing has improved. Reviewed: Care Plan, H&P, Labs, Medications Changes from previous H/P or p: No Changes Objective Vitals Vital Signs Date Time Temp Pulse Resp B/P (MAP) Pulse Ox O2 Delivery O2 Flow Rate FiO2 01/12/25 09:16 134/80 01/12/25 09:00 97.4 97 20 93 97.4 01/12/25 08:08 Nasal Cannula* 2 28 Intake/Output Intake and Output 01/12/25 07:00 Intake Total 1409 ml Output Total 1 ml Balance 1408 ml Intake Oral 1309 ml IV Total 100 ml Output Urine Total 1 ml # Voids 5 # Bowel Movements 4 General Appearance: Alert, Oriented X3, Cooperative, No acute distress HEENT: Atraumatic, PERRLA Lungs: Other (Rhonchi in right upper and lower lobe) Cardiovascular: Normal S1, Normal S2 Musculoskeletal: Normal sensory function, Normal motor function Neuro: Normal gait, Normal speech Psych/Mental Status: Mental status NL, Mood NL Medications Current Medications Medications Dose Ordered Sig/Paula Route Start Time Stop Time Status Last Admin Dose Admin Albuterol 2.5 mg Q6H PRN NEB 01/07/25 19:00 01/10/25 23:42 2.5 MG Ipratropium [place] 0.5 mg Q6H PRN NEB 01/07/25 19:00 01/10/25 23:42 0.5 MG Sodium Chloride 10 ml Q8HR IV 01/07/25 22:00 01/12/25 15:12 10 ML Docusate Sodium 100 mg BIDPRN PRN PO 01/07/25 19:00 Acetaminophen 650 mg Q6HP PRN PO 01/07/25 19:00 Acetaminophen/ Hydrocodone Bitart 1 tab Q4HP PRN PO 01/07/25 19:00 Ondansetron HCl 4 mg Q4HP PRN IV 01/07/25 19:00 01/09/25 05:50 4 MG Morphine Sulfate 2 mg Q4HPRN PRN IV 01/08/25 12:45 Lisinopril 10 mg DAILY PO 01/09/25 10:00 01/12/25 09:16 10 MG Hydralazine HCl 10 mg Q6HP PRN IV 01/08/25 12:45 Saccharomyces Boulardii 250 mg DAILY PO 01/11/25 10:00 01/12/25 09:16 250 MG Furosemide 20 mg DAILY IV 01/12/25 10:00 01/12/25 09:16 20 MG Doxycycline Monohydrate 100 mg Q12HR PO 01/11/25 22:00 01/12/25 09:16 100 MG Laboratory Results Laboratory Tests 01/12/25 04:42 Chemistry Test 01/12/25 04:42 Albumin 3.8 g/dL (3.2-4.8) Calcium Level 9.5 mg/dL (8.7-10.4) Total Protein 6.3 g/dL (5.7-8.2) LFT Test 01/12/25 04:42 Alanine Aminotransferase (ALT) 13 U/L (7-40) Alkaline Phosphatase 62 U/L (46-116) Aspartate Amino Transferase (AST) 17 U/L (13-40) Total Bilirubin 0.4 mg/dL (0.2-1.0) Urinalysis Test 01/07/25 21:00 Urine Color Light-yellow (Yellow) Urine Clarity Clear (Clear) Urine pH 6.5 (5.0-9.0) Urine Specific [place] 1.011 (1.001-1.035) Urine Protein Negative (Negative) Urine Ketones Negative (Negative) Urine Blood Negative /uL (Negative) Urine Nitrite Negative (Negative) Urine Bilirubin Negative (Negative) Urine Urobilinogen Normal mg/dL (Negative) Urine Leukocyte Esterase Negative /uL (Negative) Urine RBC <1 /hpf (0 - 4) Urine Microscopic WBC 3 /HPF (0-5) Urine Squamous Epithelial Cells None seen /hpf (<5) Urine Bacteria None seen /hpf (None Seen) Urine Glucose Normal mg/dL (Normal) Microbiology Microbiology Date/Time Source Procedure Growth Status 01/07/25 19:25 Blood Blood Culture - Preliminary NO GROWTH AFTER 72 HOURS OF INCUBATION. Resulted Labs and/or images reviewed: Labs reviewed by me, Image(s) reviewed by me Assessment/Plan Assessment/Plan Impression: -acute hypoxic respiratory failure -sepsis secondary to multifocal pneumonia -community-acquired pneumonia, probable Gram-positive/Gram-negative etiology with failure of oral antibiotic therapy -history of breast cancer -COPD -asthma Plan: -patient's overall clinical status has improved. Discussion made with the patient regarding her long history as well as her health maintenance outside of the hospital. She states that her PCP is Dr. Estevez, for who she does not follow up with on a regular basis. She states that she has a history of COPD and asthma and has had home O2 in the past. Patient was states that she does not have a psychological stress evaluator. -continue current antibiotic therapy -bronchodilators -room air ABG with social service consultation for home O2 -pulmonology consultation for follow up management as an outpatient -discharge planning for tomorrow a.m. Total time spent with patient discussing and formulating plan of care: 35 minutes. This medical document was created using an electronic medical record system with [email or web address] dictation system. Although this document has been carefully reviewed, there may still be some phonetic and typographical errors. These areas are purely typographical due to imperfections of the software programs, and do not reflect any compromise in the patient's medical care. Plan discussed with: Patient, Other (RN) My Orders Orders - ASHISH CROSS NP Procedure Category Date Status Time Abg W/ Co-Ox RT 01/12/25 Logged 16:05 Ss Eval For Home CONS 01/12/25 Transmitted Oxygen Date of Service: Jan 12, 2025 Billing Provider: ASHISH CROSS NP Common Visit Codes: [id number] INP/OBS CARE(HIGH) Procedure Codes: [id number] ASHISH CROSS NP Jan 12, 2025 16:15
[2025-01-12 17:10] LABS: Base Excess 4.3 mmol/L (-2.0-3.0)
--- NOTE | 2025-01-12 21:43 | DVHINCON2 ---
Date of service: Jan 12, 2025 Referring Physician Escobar Hoff NP Reason for Consultation Acute hypoxic respiratory failure, multifocal pneumonia and COPD exacerbation. History of Present Illness A 74-year-old woman with past medical history of breast cancer who presented to ED on 01/07/25 with complaint of cough onset x2 weeks. Patient was seen at urgent care on 01/01/25, diagnosed with pneumonia, prescribed Zithromax and prednisone. She was called on day of presentation and told to go to ED due to abnormal CXR results. Patient c/o shortness of breath, dizziness with light exertion. Denied headache, fever, chills, chest pain, N/V/D. Patient was admitted for further ca re and pulmonary consultation is requested for evaluation and management of acute hypoxic respiratory failure, multifocal pneumonia and COPD exacerbation. Review of Systems: 14-point review of systems negative unless otherwise noted above. Past Medical History: Breast cancer. Past Surgical History: Mastectomy, Appendectomy, Hysterectomy, Tonsillectomy, Cataract Surgery Medications: Reviewed. Allergies: No known drug allergies. Family History: No family history of premature CAD. No family history of lung disorders. Social History: Former smoker: Quit Greater Than 1 Year Alcohol: Denies ETOH Use Drugs: Denies Drug Use Family History: Patient reports no known family medical history. Allergies: Coded Allergies: Paroxetine (Verified Allergy, Intermediate, 01/08/25) Alprazolam (Verified Adverse Reaction, Intermediate, 01/08/25) Home Meds Active Scripts Methylprednisolone (Medrol Dosepak) 4 Mg Christian, 4 MG PO UD, #21 TAB UAD Prov:TERESA FIGUEROA MD 01/13/25 Doxycycline (Monohydrate) (Doxycycline) 100 Mg Cap, 100 MG PO BID, #14 CAP Prov:TERESA FIGUEROA MD 01/13/25 Reported Medications Prednisone (Prednisone) 20 Mg Tab, 20 MG PO, MG 01/08/25 Methylprednisolone (Methylprednisolone) 4 Mg Tab, 4 MG PO, TAB 01/08/25 Loratadine (Claritin) 10 Mg Tab, 1 TAB PO DAILY, #30 TAB 5 Refills 01/08/25 Azithromycin (Zithromax) 250 Mg Tab, 250 MG PO, TAB 01/08/25 Albuterol Sulfate (Albuterol Sulfate) 0.083 % Neb, 1 VIAL NEB Q4HPRN, #50 VIAL 01/08/25 Current Medications Current Medications Medications (Trade) Dose Ordered Sig/Paula Route PRN Reason Start Time Stop Time Status Last Admin Furosemide (Lasix Injection) 20 mg DAILY IV 01/12/25 10:00 01/12/25 09:16 Doxycycline Monohydrate (Vibramycin Tablet) 100 mg Q12HR PO 01/11/25 22:00 01/12/25 09:16 Vital Signs Vital Signs Date Time Temp Pulse Resp B/P (MAP) Pulse Ox O2 Delivery O2 Flow Rate FiO2 01/12/25 20:56 95 Nasal Cannula* 2 28 01/12/25 20:00 79 16 01/12/25 17:00 98.3 153/68 (96) 98.3 Physical Exam Gen.: Patient lying in bed in no apparent distress. On supplemental oxygen. Head: Normocephalic, atraumatic. Eyes: EOMI/PERRLA. Ears: Normal hearing. Normal anatomy. Neck/trachea: Trachea midline, supple. Nose: Normal external anatomy. Mouth: Moist mucous membranes. Chest: Decreased air entry bilaterally. No wheezing or rhonchi. Cardiovascular: Positive S1, positive S2. Regular rate and rhythm. Abdomen: Positive bowel sounds in all 4 quadrants. Soft, non-tender, non- distended. : Deferred. Rectal: Deferred. Skin: Warm, dry. Intact. Extremities: 2+ radial pulses bilaterally. No lower extremity edema. Neuro: Awake, alert, oriented x3. No gross motor or sensory deficits. Cranial nerves II through XII intact. Gait not assessed. Labs/Diagnostic Data Labs Test 01/12/25 17:01 01/12/25 04:42 01/11/25 03:00 01/08/25 09:00 Range/Units Blood Gas Specimen Type Arterial Blood Gas Sample Site Right radial Blood Gas Patient Temperature 37.0 Arterial Blood Date Drawn [id number] Arterial Blood pH 7.450 7.350-7.450 Arterial Blood Partial Pressure CO2 42.3 32.0-45.0 mmHg Arterial Blood Partial Pressure O2 48.6 *L 83.0-108.0 mmHg Arterial Blood HCO3 28.7 H 21.0-28.0 mmol/L Arterial Blood Oxygen Saturation 83.5 *L 94.0-98.0 % Arterial Blood Base Excess 4.3 H -2.0-3.0 mmol/L Arterial Blood Oxyhemoglobin 82.4 L 94.0-98.0 % Arterial Blood Carboxyhemoglobin 0.8 0.5-1.5 % Arterial Blood Methemoglobin 0.5 0.0-1.5 % Lavell Test Yes Blood Gas Total Hemoglobin 15.40 12.0-16.0 g/dL Blood Gas Modality Room air FiO2 % 21.0 Blood Gas Critical Value Read Back Yes Blood Gas Notified Whom Jules hoff np Blood Gas Notified Time [id number] Blood Gas Notified By Enrobing Machine Operator [email or web address] White Blood Count 8.3 4.4-10.8 10^3/uL Red Blood Count 4.50 4.0-5.20 10^6/uL Hemoglobin 13.5 12.2-16.2 g/dL Hematocrit 39.2 36.0-46.0 % Mean Corpuscular Volume 87.1 80.0-100.0 fL Mean Corpuscular Hemoglobin 30.0 28.0-32.0 pg Mean Corpuscular Hemoglobin Concent 34.4 32.0-36.0 g/dL Red Cell Distribution Width 13.6 11.8-14.3 % Platelet Count 275 140-450 10^3/uL Mean Platelet Volume 6.5 L 6.9-10.8 fL Neutrophils (%) (Auto) 64.5 37.0-80.0 % Lymphocytes (%) (Auto) 23.4 10.0-50.0 % Monocytes (%) (Auto) 7.5 0.0-12.0 % Eosinophils (%) (Auto) 4.1 0.0-7.0 % Basophils (%) (Auto) 0.5 0.0-2.0 % Neutrophils # (Auto) 5.3 1.6-8.6 10 ^3/uL Lymphocytes # (Auto) 1.9 0.4-5.4 10 ^3/uL Monocytes # (Auto) 0.6 0-1.3 10 ^3/uL Eosinophils # (Auto) 0.3 0-0.8 10 ^3/uL Basophils # (Auto) 0 0-0.2 10 ^3/uL Nucleated Red Blood Cells 0.0 % Sodium Level 136 136-145 mmol/L Potassium Level 3.8 3.5-5.1 mmol/L Chloride Level 101 98-107 mmol/L Carbon Dioxide Level 28 20-31 mmol/L Anion Gap 7 5-15 Blood Urea Nitrogen 7 L 9-23 mg/dL Creatinine 0.68 0.550-1.02 mg/dL Glomerular Filtration Rate Calc 90 >90 mL/min BUN/Creatinine Ratio 10.3 10.0-20.0 Serum Glucose 120 H 74-106 mg/dL Calcium Level 9.5 8.7-10.4 mg/dL Total Bilirubin 0.4 0.2-1.0 mg/dL Aspartate Amino Transferase (AST) 17 13-40 U/L Alanine Aminotransferase (ALT) 13 7-40 U/L Alkaline Phosphatase 62 46-116 U/L Total Protein 6.3 5.7-8.2 g/dL Albumin 3.8 3.2-4.8 g/dL Vancomycin Level Trough 15.8 H 5-10 ug/mL POC Glucose 109 H 70-106 mg/dl Test 01/08/25 03:37 01/07/25 21:00 01/07/25 15:06 01/07/25 14:28 Range/Units Differential Total Cells Counted 100.0 100 Neutrophils % (Manual) 78 37.0-80.0 Band Neutrophils % (Manual) 0 Lymphocytes % (Manual) 14 10.0-50.0 Monocytes % (Manual) 4 0-12 Eosinophils % (Manual) 0 0-7 Basophils % (Manual) 0 0.0-2.0 Metamyelocytes % (manual) 0 Myelocytes % (Manual) 0 Promyelocytes % (Manual) 0 Blast Cells % (Manual) 0 Reactive Lymphocytes 4 Platelet Estimate Adequate Urine Color Light-yellow Yellow Urine Clarity Clear Clear Urine pH 6.5 5.0-9.0 Urine Specific [place] 1.011 1.001-1.035 Urine Protein Negative Negative Urine Ketones Negative Negative Urine Blood Negative Negative /uL Urine Nitrite Negative Negative Urine Bilirubin Negative Negative Urine Urobilinogen Normal Negative mg/dL Urine Leukocyte Esterase Negative Negative /uL Urine RBC <1 0 - 4 /hpf Urine Microscopic WBC 3 0-5 /HPF Urine Squamous Epithelial Cells None seen <5 /hpf Urine Bacteria None seen None Seen /hpf Urine Glucose Normal Normal mg/dL Lactic Acid Level 0.9 0.4-2.0 mmol/L B-Type Natriuretic Peptide 234.40 0-100 pg/mL Influenza Type A Antigen Negative Negative Influenza Type B Antigen Negative Negative SARS-CoV-2 Antigen (Rapid) Negative NEGATIVE Microbiology Date/Time Source Procedure Growth Status 01/07/25 19:25 Blood Blood Culture - Final NO GROWTH AFTER 5 DAYS OF INCUBATION. Complete Assessment Impression: Acute hypoxic respiratory failure Dependence on supplemental oxygen Multifocal pneumonia COPD exacerbation Atelectasis Breast cancer, s/p right mastectomy Nicotine dependence Plan: Supplemental oxygen 2 LPM NC Titrate to keep O2 sats above 92%. Taper O2 as tolerated. CXR reviewed, demonstrates unchanged airspace opacities in the right lung. Improved aeration of the left lung. Continue bronchodilators. Continue antibiotics Continue steroids Antitussive PRN. Incentive spirometry Diurese to euvolemia Monitor renal function. Monitor electrolytes. Supplement as necessary. Monitor ins and outs DVT prophylaxis. Prognosis: Poor given patient's multiple co-morbidities. Rest of plan per hospitalist and other consultants. Thank you, DWAYNE Hoff, for allowing me to participate in this patient's care. Further recommendations will depend on the patient's clinical course. Please do not hesitate to contact me if you have any questions or concerns. This medical document was created using an electronic medical record system with [employer] dictation system. Although these documentations are being carefully reviewed, there may still be some phonetic and typographical changes. The errors are purely typographical, due to imperfection on the software program, and do not reflect any compromise in the patient's medical care. Plan discussed with: Patient, Other (INGRID Krueger/DWAYNE Hoff/) PUMA IRVING MD Jan 12, 2025 21:43
[2025-01-13] VITALS (10 sets, daily range): BP systolic 130–144; BP diastolic 40–71; PULSE 61–101; RESP 16–20; TEMP 36.7; O2SAT 91–99
--- NOTE | 2025-01-13 11:28 | DVHPN2 ---
Reviewed: Care Plan, H&P, Labs, Medications Changes from previous H/P or p: No Changes Objective Vitals Vital Signs Date Time Temp Pulse Resp B/P (MAP) Pulse Ox O2 Delivery O2 Flow Rate FiO2 01/13/25 09:54 142/61 01/13/25 09:33 70 96 2.0 01/13/25 08:35 97.9 16 97.9 01/13/25 05:39 Nasal Cannula 01/13/25 05:39 28 Intake/Output Intake and Output 01/13/25 07:00 Intake Total 1210 ml Balance 1210 ml Intake Oral 1210 ml # Voids 4 # Bowel Movements 2 General Appearance: Alert, Oriented X3, Cooperative, No acute distress HEENT: Atraumatic, PERRLA Lungs: Other (Rhonchi in right upper and lower lobe) Cardiovascular: Normal S1, Normal S2 Musculoskeletal: Normal sensory function, Normal motor function Neuro: Normal gait, Normal speech Psych/Mental Status: Mental status NL, Mood NL Medications Current Medications Medications Dose Ordered Sig/Paula Route Start Time Stop Time Status Last Admin Dose Admin Albuterol 2.5 mg Q6H PRN NEB 01/07/25 19:00 01/13/25 05:39 2.5 MG Ipratropium [place] 0.5 mg Q6H PRN NEB 01/07/25 19:00 01/13/25 05:39 0.5 MG Sodium Chloride 10 ml Q8HR IV 01/07/25 22:00 01/13/25 06:00 10 ML Docusate Sodium 100 mg BIDPRN PRN PO 01/07/25 19:00 Acetaminophen 650 mg Q6HP PRN PO 01/07/25 19:00 Acetaminophen/ Hydrocodone Bitart 1 tab Q4HP PRN PO 01/07/25 19:00 Ondansetron HCl 4 mg Q4HP PRN IV 01/07/25 19:00 01/09/25 05:50 4 MG Morphine Sulfate 2 mg Q4HPRN PRN IV 01/08/25 12:45 Lisinopril 10 mg DAILY PO 01/09/25 10:00 01/13/25 09:54 10 MG Hydralazine HCl 10 mg Q6HP PRN IV 01/08/25 12:45 Saccharomyces Boulardii 250 mg DAILY PO 01/11/25 10:00 01/13/25 09:55 250 MG Furosemide 20 mg DAILY IV 01/12/25 10:00 01/13/25 09:54 20 MG Doxycycline Monohydrate 100 mg Q12HR PO 01/11/25 22:00 01/13/25 09:55 100 MG Laboratory Results Laboratory Tests 01/12/25 04:42 Urinalysis Test 01/07/25 21:00 Urine Color Light-yellow (Yellow) Urine Clarity Clear (Clear) Urine pH 6.5 (5.0-9.0) Urine Specific [place] 1.011 (1.001-1.035) Urine Protein Negative (Negative) Urine Ketones Negative (Negative) Urine Blood Negative /uL (Negative) Urine Nitrite Negative (Negative) Urine Bilirubin Negative (Negative) Urine Urobilinogen Normal mg/dL (Negative) Urine Leukocyte Esterase Negative /uL (Negative) Urine RBC <1 /hpf (0 - 4) Urine Microscopic WBC 3 /HPF (0-5) Urine Squamous Epithelial Cells None seen /hpf (<5) Urine Bacteria None seen /hpf (None Seen) Urine Glucose Normal mg/dL (Normal) Blood Gas Results Test 01/12/25 17:01 Arterial Blood pH 7.450 (7.350-7.450) FiO2 % 21.0 Microbiology Microbiology Date/Time Source Procedure Growth Status 01/07/25 19:25 Blood Blood Culture - Final NO GROWTH AFTER 5 DAYS OF INCUBATION. Complete Labs and/or images reviewed: Labs reviewed by me, Image(s) reviewed by me Assessment/Plan Assessment/Plan Covering for Dr. Guardado -acute hypoxic respiratory failure: Oxygen by nasal cannula -sepsis secondary to multifocal pneumonia doxycycline -community-acquired pneumonia, probable Gram-positive/Gram-negative etiology with failure of oral antibiotic therapy -history of breast cancer -COPD -asthma COVID test negative Flu test negative Patient is requesting to be discharged home today Plan discussed with: Patient Date of Service: Jan 13, 2025 Billing Provider: TERESA FIGUEROA MD Common Visit Codes: [id number] INP/OBS CARE(HIGH) TERESA FIGUEROA MD Jan 13, 2025 11:28
[2025-01-13] MEDS ORDERED: METH4PAK PO (11:29)
[2025-01-13] MEDS ORDERED: DOXY100C79 PO (11:29)
--- NOTE | 2025-01-13 11:33 | DVHDS2 ---
Discharge Summary Date of Admission Jan 07, 2025 at 18:51 Date of Discharge: Jan 13, 2025 Admitting Diagnosis Shortness of breath Wounds: None Labs/Diagnostic Data: Laboratory Results Test 01/12/25 17:01 01/12/25 04:42 01/11/25 03:00 01/08/25 09:00 Blood Gas Specimen Type Arterial Blood Gas Sample Site Right radial Blood Gas Patient Temperature 37.0 Arterial Blood Date Drawn [id number] Arterial Blood pH 7.450 (7.350-7.450) Arterial Blood Partial Pressure CO2 42.3 mmHg (32.0-45.0) Arterial Blood Partial Pressure O2 48.6 mmHg (83.0-108.0) Arterial Blood HCO3 28.7 mmol/L (21.0-28.0) Arterial Blood Oxygen Saturation 83.5 % (94.0-98.0) Arterial Blood Base Excess 4.3 mmol/L (-2.0-3.0) Arterial Blood Oxyhemoglobin 82.4 % (94.0-98.0) Arterial Blood Carboxyhemoglobin 0.8 % (0.5-1.5) Arterial Blood Methemoglobin 0.5 % (0.0-1.5) [place] Test Yes Blood Gas Total Hemoglobin 15.40 g/dL (12.0-16.0) Blood Gas Modality Room air FiO2 % 21.0 Blood Gas Critical Value Read Back Yes Blood Gas Notified Deepti millard np Blood Gas Notified Time [id number] Blood Gas Notified By [employer] tgonzalez White Blood Count 8.3 10^3/uL (4.4-10.8) Red Blood Count 4.50 10^6/uL (4.0-5.20) Hemoglobin 13.5 g/dL (12.2-16.2) Hematocrit 39.2 % (36.0-46.0) Mean Corpuscular Volume 87.1 fL (80.0-100.0) Mean Corpuscular Hemoglobin 30.0 pg (28.0-32.0) Mean Corpuscular Hemoglobin Concent 34.4 g/dL (32.0-36.0) Red Cell Distribution Width 13.6 % (11.8-14.3) Platelet Count 275 10^3/uL (140-450) Mean Platelet Volume 6.5 fL (6.9-10.8) Neutrophils (%) (Auto) 64.5 % (37.0-80.0) Lymphocytes (%) (Auto) 23.4 % (10.0-50.0) Monocytes (%) (Auto) 7.5 % (0.0-12.0) Eosinophils (%) (Auto) 4.1 % (0.0-7.0) Basophils (%) (Auto) 0.5 % (0.0-2.0) Neutrophils # (Auto) 5.3 10 ^3/uL (1.6-8.6) Lymphocytes # (Auto) 1.9 10 ^3/uL (0.4-5.4) Monocytes # (Auto) 0.6 10 ^3/uL (0-1.3) Eosinophils # (Auto) 0.3 10 ^3/uL (0-0.8) Basophils # (Auto) 0 10 ^3/uL (0-0.2) Nucleated Red Blood Cells 0.0 % Sodium Level 136 mmol/L (136-145) Potassium Level 3.8 mmol/L (3.5-5.1) Chloride Level 101 mmol/L (98-107) Carbon Dioxide Level 28 mmol/L (20-31) Anion Gap 7 (5-15) Blood Urea Nitrogen 7 mg/dL (9-23) Creatinine 0.68 mg/dL (0.550-1.02) Glomerular Filtration Rate Calc 90 mL/min (>90) BUN/Creatinine Ratio 10.3 (10.0-20.0) Serum Glucose 120 mg/dL (74-106) Calcium Level 9.5 mg/dL (8.7-10.4) Total Bilirubin 0.4 mg/dL (0.2-1.0) Aspartate Amino Transferase (AST) 17 U/L (13-40) Alanine Aminotransferase (ALT) 13 U/L (7-40) Alkaline Phosphatase 62 U/L (46-116) Total Protein 6.3 g/dL (5.7-8.2) Albumin 3.8 g/dL (3.2-4.8) Vancomycin Level Trough 15.8 ug/mL (5-10) POC Glucose 109 mg/dl (70-106) Test 01/08/25 03:37 01/07/25 21:00 01/07/25 15:06 01/07/25 14:28 Differential Total Cells Counted 100.0 (100) Neutrophils % (Manual) 78 (37.0-80.0) Band Neutrophils % (Manual) 0 Lymphocytes % (Manual) 14 (10.0-50.0) Monocytes % (Manual) 4 (0-12) Eosinophils % (Manual) 0 (0-7) Basophils % (Manual) 0 (0.0-2.0) Metamyelocytes % (manual) 0 Myelocytes % (Manual) 0 Promyelocytes % (Manual) 0 Blast Cells % (Manual) 0 Reactive Lymphocytes 4 Platelet Estimate Adequate Urine Color Light-yellow (Yellow) Urine Clarity Clear (Clear) Urine pH 6.5 (5.0-9.0) Urine Specific [place] 1.011 (1.001-1.035) Urine Protein Negative (Negative) Urine Ketones Negative (Negative) Urine Blood Negative /uL (Negative) Urine Nitrite Negative (Negative) Urine Bilirubin Negative (Negative) Urine Urobilinogen Normal mg/dL (Negative) Urine Leukocyte Esterase Negative /uL (Negative) Urine RBC <1 /hpf (0 - 4) Urine Microscopic WBC 3 /HPF (0-5) Urine Squamous Epithelial Cells None seen /hpf (<5) Urine Bacteria None seen /hpf (None Seen) Urine Glucose Normal mg/dL (Normal) Lactic Acid Level 0.9 mmol/L (0.4-2.0) B-Type Natriuretic Peptide 234.40 pg/mL (0-100) Influenza Type A Antigen Negative (Negative) Influenza Type B Antigen Negative (Negative) SARS-CoV-2 Antigen (Rapid) Negative (NEGATIVE) Other Laboratory Tests 01/12/25 04:42 Brief Hx & Hospital Course: Covering For Dr. Guardado 74-year-old female with a history of COPD asthma breast cancer came in for shortness of breaths found to have community-acquired multifocal pneumonia treated with the doxycycline and steroids COVID test negative flu test negative patient has significantly improved needs 3 L of oxygen by nasal cannula oxygen at the bedside to take home discharged home. Prescription transmitted to pharmacy Consults/Reason for consult Dr. Spring Operations or Procedures None Condition at Discharge: Fair Final Diagnosis/Problems List -acute hypoxic respiratory failure: Oxygen by nasal cannula -sepsis secondary to multifocal pneumonia doxycycline -community-acquired pneumonia, probable Gram-positive/Gram-negative etiology with failure of oral antibiotic therapy -history of breast cancer -COPD -asthma COVID test negative Flu test negative Discharge Disposition: Home Discharge Instruct/Medications Diet: Cardiac 2g Na,low cholest Activity: Light activity Follow Up/Referral: Resume all previous home medications Follow up with the primary Dr Medications: Doxycycline Medrol Dosepak Transmitted to pharmacy 36 (Time Taken for discharge summary 36 minutes) Discharge Statement: "Patient was advised to return to the ER or call 911 if any headaches, dizziness, shortness of breath, chest pain, abdominal pain, bleeding, fevers, or worsening of medical condition. Patient was counseled about treatment plan, medications, possible side effects, patientverbalized understanding. All questions were answered to the best of my ability. This discharge took greater then 30 minutes in planning, reviewing documentation, counseling the patient, and discussing with other team members." ASSESSMENT ASSESSMENT Hospital Course Improved Assessment -acute hypoxic respiratory failure: Oxygen by nasal cannula -sepsis secondary to multifocal pneumonia doxycycline -community-acquired pneumonia, probable Gram-positive/Gram-negative etiology with failure of oral antibiotic therapy -history of breast cancer -COPD -asthma COVID test negative Flu test negative Date of Service: Jan 13, 2025 Billing Provider: TERESA FIGUEROA MD Common Visit Codes: 10943-III/OBS DISCH DAY >30min TERESA FIGUEROA MD Jan 13, 2025 11:32
--- NOTE | 2025-01-13 19:26 | DVHPN2 ---
Progress Note - Dictate Date Seen: Jan 13, 2025 Medical Necessity Reason Pt with a Central, PICC or Fol: No Subjective Patient seen and examined at bedside. Remains on supplemental oxygen Overnight events reviewed. vital signs Vital Sign Date Time Temp Pulse Resp B/P (MAP) Pulse Ox O2 Delivery O2 Flow Rate FiO2 01/13/25 16:53 98.1 61 18 130/55 (80) 97 98.1 01/13/25 09:33 2.0 01/13/25 08:00 Nasal Cannula* 28 Total Intake and Output 01/12/25 01/12/25 01/13/25 15:00 23:00 07:00 Intake Total 460 ml 750 ml Balance 460 ml 750 ml objective Gen.: Patient lying in bed in no apparent distress. On supplemental oxygen. Head: Normocephalic, atraumatic. Eyes: EOMI/PERRLA. Ears: Normal hearing. Normal anatomy. Neck/trachea: Trachea midline, supple. Nose: Normal external anatomy. Mouth: Moist mucous membranes. Chest: Decreased air entry bilaterally. No wheezing or rhonchi. Cardiovascular: Positive S1, positive S2. Regular rate and rhythm. Abdomen: Positive bowel sounds in all 4 quadrants. Soft, non-tender, non- distended. : Deferred. Rectal: Deferred. Skin: Warm, dry. Intact. Extremities: 2+ radial pulses bilaterally. No lower extremity edema. Neuro: Awake, alert, oriented x3. No gross motor or sensory deficits. Cranial nerves II through XII intact. Gait not assessed. laboratory and microbiology Laboratory Tests 01/12/25 04:42 Test 01/12/25 04:42 Range/Units Serum Glucose 120 H 74-106 mg/dL Assessment/Plan Impression: Acute hypoxic respiratory failure Dependence on supplemental oxygen Multifocal pneumonia COPD exacerbation Atelectasis Breast cancer, s/p right mastectomy Hx of nicotine dependence Events: Remains on supplemental oxygen, 2 LPM NC Taper O2 as tolerated Arrange for home oxygen Continue antibiotics Incentive spirometry Diurese to maintain euvolemia - on Lasix Monitor renal function. Monitor electrolytes. Supplement as necessary. Monitor ins and outs Disposition per hospitalist. Labs and imaging reviewed. Rest of plan as noted below. Plan: Supplemental oxygen Titrate to keep O2 sats above 92%. CXR reviewed, demonstrates unchanged airspace opacities in the right lung. Improved aeration of the left lung. Continue bronchodilators. Continue antibiotics Antitussive PRN. Incentive spirometry Diurese to euvolemia Monitor renal function. Monitor electrolytes. Supplement as necessary. Monitor ins and outs DVT prophylaxis. Prognosis: Poor given patient's multiple co-morbidities. Rest of plan per hospitalist and other consultants. Thank you, DWAYNE Hoff, for allowing me to participate in this patient's care. Further recommendations will depend on the patient's clinical course. Please do not hesitate to contact me if you have any questions or concerns. This medical document was created using an electronic medical record system with [employer] dictation system. Although these documentations are being carefully reviewed, there may still be some phonetic and typographical changes. The errors are purely typographical, due to imperfection on the software program, and do not reflect any compromise in the patient's medical care. Dietary Evaluation Review Comments: encourage and monitor 75% PO intake. Expected Outcomes/Goals: gradual wt loss, within 10% of IBW Plan discussed with: Patient, Other (INGRID Reyes) PUMA IRVING MD Jan 13, 2025 19:26
== END 2025-01-13 18:30 | disposition home or self-care (01) | DRG 871 ==
LOC: ER 13:53 → OVERFLOW 18:51 → WEST WING 01-08 18:23
PROVIDERS: ADMIT Nurse Practitioner Acute Care; ATTEND Nurse Practitioner Acute Care
DX: A41.50 Gram-negative sepsis, unspecified (principal); I50.41 Acute combined systolic (congestive) and diastolic (congestive) heart failure; J15.69 Pneumonia due to other Gram-negative bacteria; J15.9 Unspecified bacterial pneumonia; J96.01 Acute respiratory failure with hypoxia; J44.0 Chronic obstructive pulmonary disease with (acute) lower respiratory infection; J44.1 Chronic obstructive pulmonary disease with (acute) exacerbation; Z20.822 Contact with and (suspected) exposure to COVID-19; I11.0 Hypertensive heart disease with heart failure; Z85.3 Personal history of malignant neoplasm of breast; Z90.11 Acquired absence of right breast and nipple; Z90.710 Acquired absence of both cervix and uterus; Z87.891 Personal history of nicotine dependence; Z88.8 Allergy status to other drugs, medicaments and biological substances; Z79.899 Other long term (current) drug therapy; Z99.81 Dependence on supplemental oxygen
CPT/HCPCS: 36415; 36600; 71045; 71260; 80053; 80202; 81001; 82805; 82962; 83605; 83880; 85007; 85025; 85027; 87040; 87426; 87804; 93306; 94640; 96361; 96365; 96366; G0378; J2405; J2543